=== PATIENT | female | born 1960 | race Two or more races ===

== ENCOUNTER 2024-08-16 08:10 | Outpatient (CLI) | payer OTHER ==
[2024-08-16 09:14] LABS: CREATININE SERUM 0.73 mg/dL (0.55-1.02)
== END 2024-08-16 08:24 | disposition home or self-care (01) ==
LOC: LAB 08:10
DX: N28.1 Cyst of kidney, acquired (principal)

== ENCOUNTER 2024-08-16 08:49 | Outpatient (CLI) | payer OTHER | END 2024-08-16 09:12 | disposition home or self-care (01) | LOC: TOM 08:49 | PROVIDERS: ATTEND Internal Medicine | DX: N20.0 Calculus of kidney (principal); N28.1 Cyst of kidney, acquired | CPT/HCPCS: 74177; Q9965 ==

== ENCOUNTER 2025-01-07 08:55 | Outpatient (CLI) | payer OTHER | END 2025-01-07 09:09 | disposition home or self-care (01) | LOC: TOM 08:55 | PROVIDERS: ATTEND Internal Medicine | DX: R31.9 Hematuria, unspecified (principal); K57.80 Diverticulitis of intestine, part unspecified, with perforation and abscess without bleeding | CPT/HCPCS: 74177; Q9965 ==